=== PATIENT | female | born 1990 | race Caucasian/White ===

== ENCOUNTER 2019-06-25 22:01 | Emergency (ER) | payer MEDICAID, OTHER ==
[~2019-06-25] VITALS: Ht 152.4 cm; Wt 71.1 kg
[~2019-06-25 22:01] MED LIST: AMOX1TAB10 PO; OXYM15SP11 NASAL; PREN1TAB62 PO
[2019-06-25 22:03] VITALS: BP 120/58; PULSE 80; RESP 19; Ht 152.4 cm; Wt 71.1 kg
== END 2019-06-26 02:23 | disposition home or self-care (01) ==
LOC: FTE 22:01
DX: R04.0 Epistaxis (principal); H65.192 Other acute nonsuppurative otitis media, left ear; R51 Headache; F17.210 Nicotine dependence, cigarettes, uncomplicated
CPT/HCPCS: 70450; 85025